=== PATIENT | male | born 1945 | race Caucasian/White ===

== ENCOUNTER 2024-04-16 19:38 | Emergency (ER) | payer MEDICARE ==
[~2024-04-16] VITALS: Ht 188 cm; Wt 109.0 kg
[2024-04-16] VITALS (9 sets, daily range): BP systolic 0–174; BP diastolic 0–150
[~2024-04-16 19:38] MED LIST: ADVAIR DISK1 INH; AMOXICILLIN/CL875 MG PO; AUGMENTIN875TAB PO; EPINEPHrine HCL 0.1 MG/ML 10 ML SYR IV ONE; LOTENSIN HCT1 TA2 PO; PROAIR HFA IN; PROAIR HFA108 MCG/AC IN; QVAR80 MCG IN; REZYST250 MG PO; SODIUM CHLORIDE 0.9% 1,000 ML BAG IV ONE; TOBRAMYCIN0.3 % OD; ZOFRAN4 M1 PO
[2024-04-16] MEDS ORDERED: SODIUM CHLORIDE 0.9% 1,000 ML IV ONE ×4 (19:55→22:55)
[2024-04-16 20:10] LABS: BASO% 0.7 % (0-3); EOS% 2.3 % (0-8); HEMATOCRIT 39.7 % (39.0-50.0); HEMOGLOBIN 12.5 g/dl (14.0-18.0); IMMATURE GRANULOCYTES 0.8 % (0.0-5.0); LYMPH% 37.8 % (15-41); MEAN CELL VOLUME 90.6 fL CALC (80.0-100.0); MEAN CORPUSCULAR HGB 28.5 pG CALC (26.0-32.0); MEAN CORPUSCULAR HGB CONC 31.5 g/dL CAL (32.0-36.0); MONO% 7.3 % (2-13); NEUT# 6.1 thou/uL (1.82-7.42); NEUT% 51.1 % (42-76); RED BLOOD COUNT 4.38 mill/uL (4.70-6.10); RED CELL DISTRI WIDTH 12.8 % (11.5-15.5)
[2024-04-16 20:24] LABS: BILIRUBIN, TOTAL 0.6 mg/dL (0.2-1.3); CREATININE 1.6 mg/dL (0.7-1.3); MAGNESIUM 2.1 mg/dL (1.6-2.3); POTASSIUM 3.6 mmol/l (3.5-5.1); TOTAL PROTEIN 7.1 g/dL (6.3-8.2)
[2024-04-16 20:29] LABS: ACT PARTIAL THROMBO TIME 19.5 SECONDS (20.0-32.5)
[2024-04-16 20:30] LABS: PROTHROMBIN TIME 10.4 SECONDS (9.0-12.5)
[2024-04-16] MEDS ORDERED: Iopamidol 370 (Isovue) 76% 100 ML SDV IV ONE (20:40)
[2024-04-16] MEDS ORDERED: ISOVUE-300 (Iopamidol) 100 ML SDV IV ONE (20:40)
== END 2024-04-16 23:22 | disposition expired ==
LOC: ED 19:38
PROVIDERS: Family Medicine
PROC: 5A12012 Performance of Cardiac Output, Single, Manual (ICD-10-PCS; principal; 2024-04-16)
DX: I71.30 Abdominal aortic aneurysm, ruptured, unspecified (principal); I46.9 Cardiac arrest, cause unspecified; I10 Essential (primary) hypertension
CPT/HCPCS: Q9967